=== PATIENT | male | born 1995 | race Caucasian/White ===

== ENCOUNTER 2024-10-10 10:42 | Outpatient (CLI) | payer OTHER | END 2024-10-10 10:43 | disposition home or self-care (01) | LOC: CSHSLEEP 10:42 | PROVIDERS: ATTEND Internal Medicine | DX: G47.30 Sleep apnea, unspecified (principal); F41.9 Anxiety disorder, unspecified; G47.10 Hypersomnia, unspecified | CPT/HCPCS: 95800 ==